=== PATIENT | male | born 2000 | race Two or more races ===

== ENCOUNTER 2022-12-18 14:16 | Emergency (ER) | payer OTHER ==
[~2022-12-18] VITALS: Ht 175.3 cm; Wt 69.4 kg
--- NOTE | 2022-12-18 15:25 | NUR ---
C/O GENERALIZED ABDOMINAL PAIN AND DIARRHEA SINCE YESTERDAY.
[2022-12-18] MEDS ORDERED: IV NS 0.9% 1,000 ML BAG IV ONE ×2 (17:30)
--- NOTE | 2022-12-18 18:19 | NUR ---
IV LINE RIGHT AC 20 G
--- NOTE | 2022-12-18 18:19 | NUR ---
BLOOD SAMPLE OBTAINED SENT TO LAB
[2022-12-18 18:20] LABS: BASOPHILS % (AUTO) 0.1 % (0.0-2.0); HEMATOCRIT 49 % (39-51); HEMOGLOBIN 16.3 g/dL (13.5-17.5); LYMPHOCYTES # (AUTO) 0.3 K/uL (0.8-4.8); LYMPHOCYTES % (AUTO) 4.4 % (20.0-44.0); MEAN CORPUSCULAR HGB CONC 34 g/dl (31.0-36.0); MEAN CORPUSCULAR VOLUME 91 fL (80-96); MONOCYTES # (AUTO) 0.2 K/uL (0.1-1.30); MONOCYTES % (AUTO) 3.3 % (2.0-12.0); NEUTROPHILS % (AUTO) 92.2 % (43.0-81.0); PLATELET COUNT (AUTO) 160 K/uL (150-450); RED BLOOD CELL COUNT(AUTO) 5.36 MIL/uL (4.5-6.0); WHITE BLOOD COUNT (AUTO) 6.5 K/uL (4.3-11.0)
[2022-12-18 18:27] LABS: CALCIUM, SERUM 9.7 mg/dL (8.5-10.1); CREATININE 0.8 mg/dL (0.6-1.3); POTASSIUM 4.1 mmol/L (3.5-5.1)
[2022-12-18 18:39] LABS: ALBUMIN 4.9 g/dL (3.4-5.0); BILIRUBIN,DIRECT 0.3 mg/dL (0.0-0.2); BILIRUBIN,TOTAL 1.9 mg/dL (0.2-1.0); TOTAL PROTEIN, SERUM 8.5 g/dL (6.4-8.2)
[2022-12-18] MEDS ORDERED: ACETAMINOPHEN ES 500 MG TABLET ONE (19:42)
--- NOTE | 2022-12-18 19:57 | NUR ---
IV removed. Catheter intact and site benign. Pressure and 4x4 applied to site. No bleeding noted.Patient discharged to home in stable condition. Written and verbal after care instructions given. Patient verbalizes understanding of instruction.
[2022-12-18] MEDS ORDERED: ACETAMINOPHEN ES 500 MG TABLET PO ONE (20:00)
[2022-12-18 20:08] VITALS: BP 131/72
== END 2022-12-18 20:00 | disposition home or self-care (01) ==
LOC: ER 14:18
DX: A08.4 Viral intestinal infection, unspecified (principal)
CPT/HCPCS: 99283; 96360; 85025; 80048; 80076; 36415; J7030